=== PATIENT | male | born 1980 | race Hispanic/Latino ===

== ENCOUNTER 2025-07-21 10:07 | Inpatient (IN) | payer OTHER ==
[2025-07-18 09:47] LABS: BASOPHILS % 0.3 % (0.0-1.0); EOSINOPHILS % 3.1 % (0.0-6.0); LYMPHOCYTES % 30.4 % (18.0-39.1); MONOCYTES % 7.5 % (4.4-11.3); NEUTROPHILS % 58.4 % (38.7-80.0); RED CELL DISTRIBUTION WIDTH 13.8 % (11.7-14.4)
[2025-07-18 10:05] LABS: EST GLOMERULAR FILTRATION RATE 111.0 ML/MIN (>=60)
[~2025-07-21] VITALS: Ht 172.7 cm; Wt 110.9 kg
[~2025-07-21 10:07] MED LIST: BICALUTAMIDE50 MG PO; CALCIUM500 MG; FLOMAX0.4 MG PO; LUPRON DEPOT7.5 MG; MULTI-VITAMIN1 EACH PO
[2025-07-21] MEDS ORDERED: LIDOCAINE HCL 2% LOCAL INJ 5 ML SDV VIAL INJ ONE ×2 (10:50→12:25)
[2025-07-21] MEDS ORDERED: PROPOFOL IV EMULSION 10 MG/ML 20 ML VIAL ONE ×2 (10:50→12:25)
[2025-07-21] MEDS ORDERED: ROCURONIUM BROMIDE 0 ML IV ONE (10:51)
[2025-07-21] MEDS ORDERED: MIDAZOLAM HCL 2 MG/2 ML VIAL ONE (12:25)
[2025-07-21] MEDS ORDERED: FENTANYL CITRATE/PF 100MCG/2 ML INJ ONE ×2 (12:25→14:55)
[2025-07-21] MEDS ORDERED: ROCURONIUM BROMIDE 1 ML IV ONE ×2 (12:25→14:09)
[2025-07-21] MEDS ORDERED: ACETAMINOPHEN 1000 MG/100 ML 100 ML IV ONE (13:39)
[2025-07-21] MEDS ORDERED: HYDROMORPHONE 2MG/ML ONE (13:56)
[2025-07-21] MEDS ORDERED: EPHEDRINE SULFATE INJ 50 MG/ML VIAL ONE (14:36)
[2025-07-21] MEDS ORDERED: SUGAMMADEX SODIUM 200 MG/2 ML VIAL IV ONE (14:39)
[2025-07-21] MEDS ORDERED: NALOXONE HCL INJ 0.4 MG/ML AMP IV PRN (17:45)
[2025-07-21] MEDS ORDERED: DIPHENHYDRAMINE HCL INJ 50 MG/ML VIAL IM PRN (17:45)
[2025-07-21] MEDS ORDERED: ONDANSETRON HCL INJ 2MG/ML 2ML 2 MG/ML VIAL IV PRN (17:45)
[2025-07-21] MEDS ORDERED: ACETAMINOPHEN 1000 MG/100 ML IV PRN (17:45)
[2025-07-21] MEDS: MORPHINE SULFATE 1 MG/ML 30ML PCA IV PRN (17:57)
[2025-07-21 20:00] VITALS: BP 149/75; PULSE 90; RESP 18; TEMP 98.2; O2SAT 98
[2025-07-21] MEDS ORDERED: SODIUM CHLORIDE 0.9% 250ML IRRIG IR SCH (22:00)
[2025-07-21 23:30] VITALS: PULSE 80; RESP 18; O2SAT 98
[2025-07-22] VITALS (8 sets, daily range): BP systolic 131–146; BP diastolic 73–93; PULSE 75–85; RESP 16–18; TEMP 98.1–101.1; O2SAT 95–98
[2025-07-22 04:52] LABS: BASOPHILS % 0.2 % (0.0-1.0); EOSINOPHILS % 0.7 % (0.0-6.0); LYMPHOCYTES % 21.6 % (18.0-39.1); MONOCYTES % 7.6 % (4.4-11.3); NEUTROPHILS % 69.5 % (38.7-80.0); RED CELL DISTRIBUTION WIDTH 13.6 % (11.7-14.4)
[2025-07-22 05:21] LABS: EST GLOMERULAR FILTRATION RATE 116.0 ML/MIN (>=60)
[2025-07-22] MEDS: SODIUM CHLORIDE 0.9% 1000ML 1,000 ML IV SCH (08:33)
[2025-07-22] MEDS ORDERED: Morphine 2mg Syringe 2 MG/ML SYR IV PRN (09:15)
[2025-07-22] MEDS: ACETAMINOPHEN/CODEINE 300MG - 30MG TAB PO PRN (17:21)
[2025-07-22] MEDS: SENNA-S TABLET PO SCH (17:21)
[2025-07-22] MEDS: ACETAMINOPHEN 325 MG TAB PO PRN (21:43)
[2025-07-23] VITALS (8 sets, daily range): BP systolic 112–145; BP diastolic 65–88; PULSE 71–86; RESP 16–19; TEMP 97.9–99.8; O2SAT 95–98
[2025-07-23 05:30] LABS: BASOPHILS % 0.3 % (0.0-1.0); EOSINOPHILS % 1.8 % (0.0-6.0); LYMPHOCYTES % 22.7 % (18.0-39.1); MONOCYTES % 10.5 % (4.4-11.3); NEUTROPHILS % 64.3 % (38.7-80.0); RED CELL DISTRIBUTION WIDTH 13.4 % (11.7-14.4)
[2025-07-23 06:20] LABS: EST GLOMERULAR FILTRATION RATE 113.0 ML/MIN (>=60)
[2025-07-23] MEDS: MULTIVITAMINS/MINERALS TAB PO SCH (09:06)
[2025-07-23] MEDS: BICALUTAMIDE 50 MG TABLET PO SCH (09:06)
[2025-07-23] MEDS: CEFAZOLIN SODIUM 2 GM ONE (09:08)
[2025-07-23] MEDS: LACTATED RINGER'S 1,000 ML ONE (09:09)
[2025-07-23] MEDS: MORPHINE SULFATE 1 MG/ML 30ML PCA ONE (09:09)
[2025-07-23] MEDS: SODIUM CHLORIDE 0.9% 1000ML 1,000 ML ONE (09:09)
[2025-07-23] MEDS: TAMSULOSIN HCL 0.4 MG CAP PO SCH (16:48)
[2025-07-24 01:15] VITALS: BP 122/75; PULSE 77; RESP 18; TEMP 97.9; O2SAT 95
[2025-07-24 05:01] VITALS: BP 123/78; PULSE 76; RESP 19; TEMP 97.5; O2SAT 97
[2025-07-24 05:06] LABS: BASOPHILS % 0.3 % (0.0-1.0); EOSINOPHILS % 3.0 % (0.0-6.0); LYMPHOCYTES % 22.9 % (18.0-39.1); MONOCYTES % 9.5 % (4.4-11.3); NEUTROPHILS % 64.1 % (38.7-80.0); RED CELL DISTRIBUTION WIDTH 13.4 % (11.7-14.4)
[2025-07-24 05:33] LABS: EST GLOMERULAR FILTRATION RATE 115.0 ML/MIN (>=60)
[2025-07-24 07:58] VITALS: PULSE 75; RESP 18; O2SAT 97
[2025-07-24 08:00] VITALS: BP 125/78; PULSE 71; RESP 18; TEMP 98.9; O2SAT 96
[2025-07-24 09:49] VITALS: BP 125/78; PULSE 71; RESP 18; TEMP 98.9; O2SAT 96
== END 2025-07-24 12:58 | disposition home or self-care (01) | DRG 715 ==
LOC: OR 10:07 → PACU V 15:20 → MED/SURG 18:20
PROVIDERS: ADMIT Urology; ATTEND Internal Medicine
PROC: 0HB7XZZ Excision of Abdomen Skin, External Approach (ICD-10-PCS; 2025-07-21)
PROC: 07BC0ZX Excision of Pelvis Lymphatic, Open Approach, Diagnostic (ICD-10-PCS; principal; 2025-07-21 13:28)
DX: C61 Malignant neoplasm of prostate (principal); D62 Acute posthemorrhagic anemia; G89.18 Other acute postprocedural pain; L98.9 Disorder of the skin and subcutaneous tissue, unspecified; E66.9 Obesity, unspecified; N40.1 Benign prostatic hyperplasia with lower urinary tract symptoms; Z68.37 Body mass index [BMI] 37.0-37.9, adult
CPT/HCPCS: 36415; 71046; 80048; 83735; 85025; 87040; 87071; 87086; 87205; 88304; 88305; 88342; 93005; 94799; 99252; J0690; J1171; J2003; J2250; J2270; J7030